=== PATIENT | female | born 1995 | race African-American/Black ===

== ENCOUNTER 2024-09-16 18:18 | Emergency (ER) | payer MEDICAID ==
[~2024-09-16] VITALS: Ht 172.7 cm; Wt 81.8 kg
[2024-09-16 18:25] VITALS: BP 105/58; PULSE 75; RESP 18; TEMP 98.2; O2SAT 99
[2024-09-16 20:16] LABS: GLUCOMETER DEV NAME(LOC) ER.7; GLUCOSE,POINT OF CARE 228 MG/DL (70-110)
[2024-09-16] MEDS ORDERED: IBUP-1492 PO (20:22)
[2024-09-16] MEDS ORDERED: CORTSUSP AD (20:22)
== END 2024-09-16 20:37 | disposition home or self-care (01) ==
LOC: EMS 18:18
DX: H60.91 Unspecified otitis externa, right ear (principal); E11.9 Type 2 diabetes mellitus without complications
CPT/HCPCS: 82962; 99282; 99283